=== PATIENT | male | born 1985 | race Caucasian/White ===

== ENCOUNTER 2017-04-19 18:37 | Emergency (ER) | payer SELFPAY ==
[~2017-04-19] VITALS: Ht 172.7 cm; Wt 92.1 kg
[2017-04-19] MEDS ORDERED: KETOROLAC 30 MG/1 ML ONE (19:07)
[2017-04-19] MEDS ORDERED: OXYcodone/APAP 5/325MG TABLET ONE (19:07)
[2017-04-19 19:15] LABS: ASPARTATE AMINO TRANSFERASE 20 U/L (15-37); BLOOD UREA NITROGEN 11 mg/dL (7-18)
[2017-04-19] MEDS ORDERED: KETOROLAC 30 MG/1 ML IM ONE (19:30)
[2017-04-19] MEDS ORDERED: OXYcodone/APAP 5/325MG TABLET PO ONE (19:30)
[2017-04-19 21:43] VITALS: BP 112/70
== END 2017-04-19 21:46 | disposition home or self-care (01) ==
LOC: ED 21:00
DX: N45.1 Epididymitis (principal); F17.200 Nicotine dependence, unspecified, uncomplicated
CPT/HCPCS: 36415; 74176; 76870; 80053; 81003; 85025; 87491; 87591; 96372; 99285; J1885

== ENCOUNTER 2017-04-21 12:53 | Emergency (ER) | payer SELFPAY ==
[~2017-04-21] VITALS: Ht 172.7 cm; Wt 91.4 kg
[2017-04-21] MEDS ORDERED: HYDROmorphone 1 MG/ML, 1ML ONE (13:49)
[2017-04-21] MEDS ORDERED: HYDROmorphone 1 MG/ML, 1ML IM PRN (14:00)
[2017-04-21 14:52] VITALS: BP 124/56
[2017-04-21] MEDS ORDERED: LEVOFLOXACIN 750 MG TABLET PO ONE (15:00)
[2017-04-21] MEDS ORDERED: LEVOFLOXACIN 750 MG TABLET ONE (15:37)
== END 2017-04-21 16:07 | disposition home or self-care (01) ==
LOC: ED 13:31
DX: N45.3 Epididymo-orchitis (principal)
CPT/HCPCS: 76870; 81003; 96372; 99285; J1170

== ENCOUNTER 2017-04-24 12:53 | Emergency (ER) | payer SELFPAY ==
[~2017-04-24] VITALS: Ht 175.3 cm; Wt 89.9 kg
[2017-04-24 12:55] VITALS: BP 107/64
[2017-04-24 14:29] LABS: BLOOD UREA NITROGEN 8 mg/dL (7-18)
== END 2017-04-24 15:46 | disposition home or self-care (01) ==
LOC: ED 15:00
DX: N45.3 Epididymo-orchitis (principal)
CPT/HCPCS: 36415; 80048; 82040; 85025; 99284